=== PATIENT | female | born 1930 | race Caucasian/White ===

== ENCOUNTER 2017-06-28 15:46 | Inpatient (IN) | payer OTHER, BC ==
[~2017-06-28] VITALS: Ht 157.5 cm; Wt 51.3 kg
[~2017-06-28 15:46] MED LIST: ACIDOPHILUS1 EAC5 PO; ATROVENT 00.5 MG/2.5 IH; B-12500 MC1 SL; CHILDREN'S ASPI81 M1 PO; FEOSOL325 MG PO; FLOVENT DISKUS1 DIS2 IH; FUSION PLUS CA1 EACH PO; IMDUR30 MG PO; LEVOTHYROXINE75 MCG PO; MELATONIN1 MG PO; NABI650T PO; PROAIR HFA8.5 GM IH; ZEMPLAR1 MCG PO; ZINC50 M1 PO
[2017-06-28 16:32] LABS: BASOPHIL (%) 0.3 % (0-1); BASOPHIL COUNT 0.1 K/uL (0-0.1); EOSINOPHIL (%) 1.6 % (0-5); EOSINOPHIL COUNT 0.3 K/uL (0-0.3); HEMOGLOBIN 11.7 G/DL (11.9-15.5); IMMATURE GRANULOCYTE (%) 0.8 % (0.0-0.7); LYMPHOCYTE (%) 14.4 % (15-42); LYMPHOCYTE COUNT 2.6 K/uL (1.0-2.8); MCH 31.5 PG (29.0-34.0); MCHC 33.4 G/DL (30.0-36.0); MCV 94.3 FL (83-99); MONOCYTE (%) 7.9 % (3-12); MONOCYTE COUNT 1.4 K/uL (0-0.8); NEUTROPHIL COUNT 13.8 K/uL (1.8-6.4); PLATELET COUNT 232 K/uL (156-360); RBC DIS.WIDTH-CV 15.6 % (11.8-14.6); RED BLOOD COUNT 3.71 M/uL (3.80-5.20); WHITE BLOOD COUNT 18.3 K/uL (4.1-10.2)
[2017-06-28 16:42] LABS: CHLORIDE 102 mEq/L (99-109); POTASSIUM 4.7 mEq/L (3.7-5.4); SODIUM 136 mEq/L (136-147)
[2017-06-28 16:44] LABS: GLUCOSE 94 mg/dL (70-99)
[2017-06-28 16:47] LABS: CREATININE 4.3 mg/dL (0.6-1.3); GFR ESTIMATE (CALCULATED) 10 mL/min/
[2017-06-28 16:48] LABS: UREA NITROGEN (BUN) 39 mg/dL (9-23)
[2017-06-28 17:06] LABS: APPEARANCE CLOUDY ((CLEAR)); BILIRUBIN NEGATIVE; BLOOD NEGATIVE; COLOR AMBER ((YELLOW)); GLUCOSE (STRIP) NEGATIVE; KETONES NEGATIVE; LEUKOCYTES LARGE; NITRITE NEGATIVE; PROTEIN (STRIP) 100; SPECIFIC GRAVITY 1.016 (1.000-1.030); UROBILINOGEN 0.2 MG/DL (0.2-1.0)
[2017-06-28 17:25] LABS: BACTERIA NONE SEEN /HPF; EPITHELIAL CELLS 2+ /HPF; MUCUS NONE SEEN /LPF; RED BLOOD CELLS 20-30 /HPF (0-5); UCUL ADDED? YES; WHITE BLOOD CELLS TNTC /HPF (0-5)
[2017-06-28] MEDS ORDERED: FLONASE16 G1 BOTH NARES (21:14)
[2017-06-28] MEDS ORDERED: TYLENOL EXTRA500 MG PO (21:16)
[2017-06-28] MEDS ORDERED: DUONEB 2.5-0.5 M3 ML AEROSOL (21:16)
[2017-06-29 06:28] LABS: HEMATOCRIT 34.2 % (36.0-46.0); HEMOGLOBIN 11.5 G/DL (11.9-15.5); MCH 31.3 PG (29.0-34.0); MCHC 33.6 G/DL (30.0-36.0); MCV 92.9 FL (83-99); PLATELET COUNT 177 K/uL (156-360); RBC DIS.WIDTH-CV 15.4 % (11.8-14.6); RED BLOOD COUNT 3.68 M/uL (3.80-5.20); WHITE BLOOD COUNT 12.6 K/uL (4.1-10.2)
[2017-06-29 06:38] LABS: ALBUMIN 2.8 g/dL (3.2-4.8); CHLORIDE 108 mEq/L (99-109); POTASSIUM 4.8 mEq/L (3.7-5.4); SODIUM 138 mEq/L (136-147)
[2017-06-29 06:40] LABS: GLUCOSE 85 mg/dL (70-99)
[2017-06-29 06:44] LABS: CREATININE 3.7 mg/dL (0.6-1.3); GFR ESTIMATE (CALCULATED) 12 mL/min/; PHOSPHORUS 2.5 mg/dL (2.5-4.9)
[2017-06-29 06:45] LABS: UREA NITROGEN (BUN) 37 mg/dL (9-23)
[2017-06-29 12:28] VITALS: BP 100/60
[2017-06-29 15:53] VITALS: BP 100/70
[2017-06-29 19:17] VITALS: BP 135/82
[2017-06-29 23:21] VITALS: BP 129/80
[2017-06-30 03:37] VITALS: BP 122/78
[2017-06-30 07:12] LABS: ALBUMIN 2.5 G/DL (3.2-4.8); CHLORIDE 111 MEQ/L (99-109); CREATININE 3.6 MG/DL (0.6-1.3); GFR ESTIMATE (CALCULATED) 13 mL/min/; GLUCOSE 81 mg/dL (70-99); PHOSPHORUS 2.9 mg/dL (2.5-4.9); POTASSIUM 4.5 MEQ/L (3.7-5.4); SODIUM 140 MEQ/L (136-147); UREA NITROGEN (BUN) 36 mg/dL (9-23)
[2017-06-30 07:36] LABS: BASOPHIL (%) 0.4 % (0-1); EOSINOPHIL (%) 3.4 % (0-5); EOSINOPHIL COUNT 0.3 K/uL (0-0.3); HEMATOCRIT 40.8 % (36.0-46.0); HEMOGLOBIN 13.2 G/DL (11.9-15.5); IMMATURE GRANULOCYTE (%) 0.7 % (0.0-0.7); LYMPHOCYTE (%) 15.9 % (15-42); LYMPHOCYTE COUNT 1.5 K/uL (1.0-2.8); MCH 30.5 PG (29.0-34.0); MCHC 32.4 G/DL (30.0-36.0); MCV 94.2 FL (83-99); MONOCYTE (%) 8.2 % (3-12); MONOCYTE COUNT 0.8 K/uL (0-0.8); NEUTROPHIL (%) 71.4 % (45-76); NEUTROPHIL COUNT 6.6 K/uL (1.8-6.4); RBC DIS.WIDTH-CV 15.6 % (11.8-14.6); RBC DIS.WIDTH-SD 53.3 % (39-53); RED BLOOD COUNT 4.33 M/uL (3.80-5.20); WHITE BLOOD COUNT 9.2 K/uL (4.1-10.2)
[2017-06-30 08:11] LABS: HEMATOLOGY COMMENT 1 SMEAR COMPATIBLE; PLAT.SUFFICIENCY DECREASED; PLATELET COUNT 121 K/uL (156-360)
[2017-06-30 08:47] VITALS: BP 114/62
[2017-06-30 11:23] VITALS: BP 110/64
[2017-06-30 16:20] VITALS: BP 92/66
[2017-06-30 19:05] VITALS: BP 112/55
[2017-06-30 22:45] VITALS: BP 131/58
[2017-07-01 03:25] VITALS: BP 119/58
[2017-07-01 07:03] LABS: BASOPHIL (%) 0.3 % (0-1); EOSINOPHIL (%) 4.1 % (0-5); EOSINOPHIL COUNT 0.5 K/uL (0-0.3); HEMATOCRIT 27.8 % (36.0-46.0); IMMATURE GRANULOCYTE (%) 0.6 % (0.0-0.7); LYMPHOCYTE COUNT 1.8 K/uL (1.0-2.8); MCH 30.5 PG (29.0-34.0); MCV 95.2 FL (83-99); MONOCYTE (%) 8.5 % (3-12); NEUTROPHIL (%) 71.5 % (45-76); NEUTROPHIL COUNT 8.5 K/uL (1.8-6.4); RBC DIS.WIDTH-CV 15.9 % (11.8-14.6); RBC DIS.WIDTH-SD 54.4 % (39-53); WHITE BLOOD COUNT 11.8 K/uL (4.1-10.2)
[2017-07-01 07:04] LABS: HEMOGLOBIN 8.9 G/DL (11.9-15.5); PLATELET COUNT 219 K/uL (156-360); RED BLOOD COUNT 2.92 M/uL (3.80-5.20)
[2017-07-01 07:12] LABS: CHLORIDE 109 MEQ/L (99-109); CREATININE 3.1 MG/DL (0.6-1.3); GFR ESTIMATE (CALCULATED) 15 mL/min/; GLUCOSE 98 mg/dL (70-99); POTASSIUM 4.1 MEQ/L (3.7-5.4); SODIUM 139 MEQ/L (136-147); UREA NITROGEN (BUN) 28 mg/dL (9-23); VANCOMYCIN, TROUGH 11.9 MCG/ML (10-20)
[2017-07-01 07:13] LABS: ALBUMIN 2.3 G/DL (3.2-4.8); CHLORIDE 109 MEQ/L (99-109); CREATININE 3.1 MG/DL (0.6-1.3); GFR ESTIMATE (CALCULATED) 15 mL/min/; GLUCOSE 97 mg/dL (70-99); POTASSIUM 4.1 MEQ/L (3.7-5.4); SODIUM 139 MEQ/L (136-147); UREA NITROGEN (BUN) 28 mg/dL (9-23)
[2017-07-01 07:23] VITALS: BP 119/56
[2017-07-01 07:49] LABS: IRON 20 MCG/DL (35-150); TRANSFERRIN (TIBC) 100.6 mg/dL (215-380); TRANSFERRIN SATUR. 20 % (20-55)
[2017-07-01 10:58] VITALS: BP 137/65
[2017-07-01 15:57] VITALS: BP 154/71
[2017-07-01 19:05] VITALS: BP 140/60
[2017-07-01 23:15] VITALS: BP 137/63
[2017-07-02 03:50] VITALS: BP 148/65
[2017-07-02 07:21] VITALS: BP 141/65
[2017-07-02 07:24] LABS: BASOPHIL (%) 0.5 % (0-1); BASOPHIL COUNT 0.1 K/uL (0-0.1); EOSINOPHIL (%) 5.5 % (0-5); EOSINOPHIL COUNT 0.6 K/uL (0-0.3); HEMATOCRIT 27.9 % (36.0-46.0); HEMOGLOBIN 8.9 G/DL (11.9-15.5); IMMATURE GRANULOCYTE (%) 0.8 % (0.0-0.7); LYMPHOCYTE (%) 14.7 % (15-42); LYMPHOCYTE COUNT 1.6 K/uL (1.0-2.8); MCH 30.4 PG (29.0-34.0); MCHC 31.9 G/DL (30.0-36.0); MCV 95.2 FL (83-99); NEUTROPHIL (%) 69.5 % (45-76); NEUTROPHIL COUNT 7.4 K/uL (1.8-6.4); PLATELET COUNT 238 K/uL (156-360); RBC DIS.WIDTH-CV 15.8 % (11.8-14.6); RBC DIS.WIDTH-SD 54.2 % (39-53); RED BLOOD COUNT 2.93 M/uL (3.80-5.20); WHITE BLOOD COUNT 10.6 K/uL (4.1-10.2)
[2017-07-02 07:44] LABS: ALBUMIN 2.4 G/DL (3.2-4.8); CHLORIDE 106 MEQ/L (99-109); CREATININE 2.9 MG/DL (0.6-1.3); GFR ESTIMATE (CALCULATED) 16 mL/min/; GLUCOSE 89 mg/dL (70-99); PHOSPHORUS 2.1 mg/dL (2.5-4.9); POTASSIUM 3.7 MEQ/L (3.7-5.4); SODIUM 136 MEQ/L (136-147); UREA NITROGEN (BUN) 26 mg/dL (9-23)
[2017-07-02 08:01] LABS: FERRITIN 1052 NG/ML (10-291)
[2017-07-02 08:08] LABS: FOLIC ACID (FOLATE) > 22.0 NG/ML (5.0-22.0)
[2017-07-02 11:34] VITALS: BP 153/67
[2017-07-02 15:14] VITALS: BP 106/55
[2017-07-02 19:00] VITALS: BP 145/66
[2017-07-03 03:50] VITALS: BP 142/66
[2017-07-03 07:15] VITALS: BP 133/63
[2017-07-03 07:16] LABS: ALBUMIN 2.4 G/DL (3.2-4.8); CHLORIDE 108 MEQ/L (99-109); CREATININE 2.7 MG/DL (0.6-1.3); GFR ESTIMATE (CALCULATED) 18 mL/min/; GLUCOSE 85 mg/dL (70-99); PHOSPHORUS 2.1 mg/dL (2.5-4.9); SODIUM 140 MEQ/L (136-147); UREA NITROGEN (BUN) 24 mg/dL (9-23)
== END 2017-07-03 18:07 | disposition home or self-care (01) | DRG 689 ==
LOC: EME 15:46 → 2EAST 22:22 → EDOF 22:22 → ENRESERV 22:23 → 2EAST 06-29 10:58
PROVIDERS: Internal Medicine; Internal Medicine Nephrology
DX: N30.00 Acute cystitis without hematuria (principal); N17.9 Acute kidney failure, unspecified; J44.0 Chronic obstructive pulmonary disease with (acute) lower respiratory infection; J20.9 Acute bronchitis, unspecified; E88.09 Other disorders of plasma-protein metabolism, not elsewhere classified; E11.22 Type 2 diabetes mellitus with diabetic chronic kidney disease; I12.0 Hypertensive chronic kidney disease with stage 5 chronic kidney disease or end stage renal disease; N18.6 End stage renal disease; N25.81 Secondary hyperparathyroidism of renal origin; B96.5 Pseudomonas (aeruginosa) (mallei) (pseudomallei) as the cause of diseases classified elsewhere; D63.1 Anemia in chronic kidney disease; G30.9 Alzheimer's disease, unspecified; F02.80 Dementia in other diseases classified elsewhere, unspecified severity, without behavioral disturbance, psychotic disturbance, mood disturbance, and anxiety; E03.9 Hypothyroidism, unspecified; I25.10 Atherosclerotic heart disease of native coronary artery without angina pectoris; I25.2 Old myocardial infarction; Z95.5 Presence of coronary angioplasty implant and graft; Z87.891 Personal history of nicotine dependence; Z87.01 Personal history of pneumonia (recurrent); Z79.82 Long term (current) use of aspirin
CPT/HCPCS: 36415; 71046; 76770; 80048; 80048 91; 80053; 80069; 80202; 81003; 82607; 82728; 82746; 83540; 83605; 84466; 85025; 85027; 87040; 87077; 87086; 87186; 87502; 87801; 94640; 94799; 99202; 99281; 99285; J0692; J1644; J3370; J7030